=== PATIENT | male | born 1985 | race Two or more races ===

== ENCOUNTER 2017-08-08 10:33 | Emergency (ER) | payer SELFPAY ==
[2017-08-08] MEDS ORDERED: KETOROLAC 30 MG/1 ML SDV IVP ONE (11:05)
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
--- NOTE | 2017-08-08 11:13 | CPEKG ---
Heart Rate: 89 RR Interval: 674 P-R Interval: 156 QRSD Interval: 82 QT Interval: 332 QTC Interval: 404 P [place]: 82 QRS [place]: 47 T Wave [place]: 34 EKG Severity - NORMAL ECG - EKG Impression: SINUS RHYTHM Electronically Signed By: Gloria Brunson 08-Aug-2017 15:02:02
[2017-08-08 11:25] LABS: PLATELET COUNT 454 10^3/uL (150-400)
[2017-08-08 12:14] VITALS: BP 113/76
== END 2017-08-08 12:13 | disposition home or self-care (01) ==
DX: R07.9 Chest pain, unspecified (principal); F17.200 Nicotine dependence, unspecified, uncomplicated
CPT/HCPCS: 96374; J1885